=== PATIENT | female | born 1990 ===

== ENCOUNTER 2025-06-22 15:27 | Inpatient (IN) | payer MEDICAID, SELFPAY ==
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
[2025-06-22 15:30] VITALS: BP 127/77; PULSE 103; RESP 18; TEMP 36.4; O2SAT 98; BMI 19.2
[2025-06-22 15:54] VITALS: BP 117/72; PULSE 90; RESP 20; TEMP 36.7; O2SAT 99
[2025-06-22 16:11] LABS: MANUAL DIFF FLAG NO
[2025-06-22 16:12] LABS: Hematocrit 38.0 % (37.0-47.0); Hemoglobin 12.5 g/dl (12.0-16.0); Imm Gran Abs Auto 0.03 X10*3/uL (0.00-0.03); Imm Gran Pct Auto 0.3 % (0.0-0.4); Lymphocytes Absolute Auto 3.2 X10*3/uL (1.2-4.9); Mean Corpuscular HGB Conc 32.9 g/dl (31.0-35.0); Mean Corpuscular Hemoglobin 31.3 pg (27.0-33.0); Mean Corpuscular Volume 95.0 fL (80.0-98.0); NRBC Abs Auto 0.000 X10*3/uL (0.0-0.012); NRBC Pct Auto 0.0 /100WBC (0.0-0.2); Platelet Count 460 X10*3/uL (160-400); Red Blood Count 4.00 X10*6/uL (4.20-5.50); White Blood Count 10.0 X10*3/uL (4.8-10.8)
[2025-06-22 16:16] LABS: Appearance Urine Clear; Glucose Urine UA Negative (Negative); PH 7.5 (5.0-9.0); Specific Gravity - Urine 1.010 (1.005-1.025); UMIC TRIGGER UA YES
[2025-06-22 16:18] LABS: UPreg QC Valid YES
[2025-06-22 16:22] LABS: Cannabinoid Screen Urine POSITIVE (Not Detect)
[2025-06-22 16:25] LABS: Alanine Aminotransferase 16 U/L (0-31); Albumin Level 4.5 g/dL (3.5-5.0); Alkaline Phosphatase 86 U/L (39-117); Anion Gap 12 (12-20); Aspartate Amino Transferase 21 U/L (5-31); Blood Urea Nitrogen 7 mg/dL (9-16); Calcium 9.2 mg/dL (8.4-10.2); Carbon Dioxide 29 mmol/L (22-29); Chloride 108 mmol/L (96-108); Creatinine Clr Calc Pharmacy 131.6; Estimated Glomerular Filt Rate > 60; Potassium 3.7 mmol/L (3.3-5.1); Sodium 145 mmol/L (135-145); Total Protein 7.8 g/dL (6.5-8.0)
--- NOTE | 2025-06-22 18:16 | PC.NURSE ---
Pt arrived to the POD angry, demanding, threw a cup of water on the ground when asked to stop swearing. Pt was cooperative with blood work and obtaining urine. She ate a sandwich and has been asleep.
--- OUTSIDE RECORDS SUMMARY | 2025-06-22 19:31 | XMS_ITS | Clinical Summary ---
Author Organization [facility] ity Address [address] [place] [address] Care Team Providers Care Balloon Dipper Name Role Phone Unavailable Primary Care Provider Unavailabl e Social History Tobacco Use Types Packs/Day Years Used Date Smoking Tobacco: Never Assessed Comments Unknown Sex and Gender Information Value Date Recorded Sex Assigned at Not on file Legal Sex Female 4:48 PM EST Gender Identity Not on file Sexual Orientation Not on file Plan of Treatment Health Maintenance Due Date Last Done Comments DTaP,Tdap,and Td Vaccines (1 - Tdap) 10/03/2007 Hepatitis B Vaccines (1 of 3 - 19+ 3-dose series) 10/03/2007 Cervical Cancer Screening: P ap Smear 2009 HPV Vaccines (1 - 3-dose SCD M series) 10/03/2015 HIV Screening 05/22/2024 Hepatitis C Screening 05/22/2024 Social Influencers of Health Screening 05/22/2024 Depression Screening 07/29/2024 COVID-19 Vaccine ( - 2024-2 6 season) 2025 Influenza Vaccine (#1) 2025 RSV Immunization Adult Patie nts (1 - 1-dose 75+ series) 10/03/2063 HIB Vaccines Aged Out No longer eligi ble based on patient's age to complete this topic Hepatitis A Vaccines Aged Out No long er eligible based on patient's age to complete this topic IPV Vaccines Aged Out No longer eligi ble based on patient's age to complete this topic MMR Vaccines Aged Out No longer eligi ble based on patient's age to complete this topic Meningococcal ACWY Vaccine Aged Out N o longer eligible based on patient's age to complete this topic Meningococcal B Vaccine Aged Out No l onger eligible based on patient's age to complete this topic Pneumococcal Vaccine: Pediat rics (0 to 5 Years) and At-Risk Patients (6 to 49 Years) Aged Out No longer eligible b ased on patient's age to complete this topic RSV Immunization Patients Un roseanne 20 months Aged Out No longer eligible b ased on patient's age to complete this topic Varicella Vaccines Aged Out No longer eligible based on patient's age to complete this topic
--- OUTSIDE RECORDS SUMMARY | 2025-06-22 19:31 | XMS_ITS | Clinical Summary ---
Author Organization [facility] Address [address] [phone] Phone Care Team Providers Care Area Forester Name Role Phone Pcp, Unknown Primary Care Provider Unavailabl e Allergies Active Allergy Reactions Criticality Noted Date Comments Aspirin 09/26/2023 Medications No known medications Active Problems No known active problems Social History Tobacco Use Types Packs/Day Years Used Date Smoking Tobacco: Never Assessed Education Answer Date Recorded Are you interested in more education? Not on eli e 09/26/2023 Are you concerned about learning? Not on file 09/26/2023 No 09/26/2023 No 09/26/2023 Digital Access Answer Date Recorded No 09/26/2023 No 09/26/2023 Reliable internet access at home? Not on file 09/26/2023 Device with a working camera? Not on file Comments Unknown Sex and Gender Information Value Date Recorded Sex Assigned at Female 09/26/2023 3:19 AM EST Legal Sex Female 3:09 AM EST Gender Identity Female 09/26/2023 3:19 AM EST Sexual Orientation Straight 09/26/2023 3: 19 AM EST Last Filed Vital Signs Vital Sign Reading Time Taken Comments Blood Pressure 141/98 09/26/2023 3:17 AM EST Pulse 116 09/26/2023 3:17 AM EST Temperature 37.1 C (98.8 F) 09/26/2023 3:17 AM EST Respiratory Rate 18 09/26/2023 3:17 AM EST Oxygen Saturation 97% 09/26/2023 3:18 AM EST Inhaled Oxygen Concentration - - Weight - - Height - - Body Mass Index - - Plan of Treatment Health Maintenance Due Date Last Done Comments Adult Td,Tdap Booster 1988 DEPRESSION SCREENING 2000 SMOKING Hx and SMOKELESS TOB ACCO SCREENING 2001 HEPATITIS C SCREENING 2006 HIV ONE-TIME SCREENING (18-6 5 YEARS) 2006 PAP SMEAR 2009 INFLUENZA VACCINE (#1) 2025 COVID-19 VACCINE (2024-2 6 season) 2025 HEPATITIS A VACCINES Aged Out No long er eligible based on patient's age to complete this topic HIB VACCINES Aged Out No longer eligi ble based on patient's age to complete this topic MENINGOCOCCAL VACCINES (ACWY) Aged Out No longer eligible based on patient's age to complete this topic MENINGOCOCCAL VACCINES (B) Aged Out N o longer eligible based on patient's age to complete this topic PNEUMOCOCCAL VACCINES (0-49 years) Aged Out No longer eligible based on patient's age to complete this topic Medical Devices Not on file Care Teams Area Forester Relationship Specialty Start Date End Date Pcp, Unknown PCP - General 09/26/23 Additional Source Comments The information contained in this document represents components of the legal health record. It is not the complete legal health record.[facility]
[2025-06-22 21:04] VITALS: BP 125/90; PULSE 88; RESP 18; TEMP 36.6; O2SAT 100
--- NOTE | 2025-06-22 23:12 | PC.NURSE ---
Assumed care at 1845. Patient presents as calm and cooperative with care. Tearful at times while utilizing POD phone. 20:50 CIWA score of 4. Patient c/o moderate WALSH, MD Boyle made aware. x1 PRN order for Tylenol obtained/administered, pending effectiveness. Patient requested additional medication for sleep, reports she takes 100mg of Trazodone every night. x1 PRN order for 50mg Trazodone obtained/administered, pending effectiveness. Med req completed by t/w. Endorses passive +SI, no plan/intent and states I just want my life back. It all fell apart. Denies HI/AVH. Agreeable to alert staff if feeling unsafe. Currently on menstrual cycle, provided sanitary pads. Requesting ice water frequently. 15 minute safety checks ongoing. Continue plan for CARE Team evaluation in AM.
--- NOTE | 2025-06-23 | ECG_ITS ---
Test Reason : qrs Blood Pressure : */* mmHG Vent. Rate : 68 BPM Atrial Rate : 68 BPM P-R Int : 128 ms QRS Dur : 88 ms QT Int : 428 ms P-R-T Axes : 45 65 45 degrees QTcB Int : 455 ms Normal sinus rhythm Normal ECG No previous ECGs available Referred By: Becca Le Electronically Signed By: Zach Cheng
--- NOTE | 2025-06-23 07:24 | MHC.CARE ---
Pt was assessed by DESIREE yesterday and made an inpatient psychiatric bedsearch. She requested a [facility] admission, did an intake, was accepted, and [facility] told Nancy to send her to a hospital for medical clearance, hence her arrival here.
--- NOTE | 2025-06-23 07:39 | PC.NURSE ---
Assumed care of patient at 0645, patient appears to be in no apparent distress, sleeping, respirations are even and unlabored. Continue plan of care for IPLOC
[2025-06-23 08:03] VITALS: BP 145/85; PULSE 77; RESP 14; TEMP 36.2; O2SAT 100
[2025-06-23 10:48] VITALS: BP 164/85; PULSE 75; RESP 16; TEMP 36.3; O2SAT 95
--- NOTE | 2025-06-23 11:49 | PC.NURSE ---
Addendum entered by Zoya Morse RN 06/23/25 11:49: Pt also declined nicotine replacement therapy at this time, stated I just want to quit cold turkey. RN encouraged pt to reach out if pt was interested in NRT, pt verbalized understanding. Original Note: Pt declined flu vaccine at this time
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
--- NOTE | 2025-06-23 13:31 | PC.NURSE ---
Spoke with pharmacist at [facility] on [facility] who stated Vivitrol injection was sent out on 06/17/25, unable to confirm date that pt received injection
[2025-06-23 13:45] VITALS: BMI 20.5
[2025-06-23 15:31] VITALS: BP 129/90; PULSE 78; RESP 16; TEMP 36.3; O2SAT 95
[2025-06-23 20:00] VITALS: BP 135/85; PULSE 64; RESP 14; TEMP 36.9; O2SAT 98
--- NOTE | 2025-06-23 21:02 | HO.PSYADMNOT ---
HPI Date of Service: 06/23/25 Chief Complaint: SI Sources of Information: patient interviewed, chart reviewed and crisis/core team assessment reviewed HPI Subjective Notes: Alejandro Warning and Conditional Voluntary Healthcare Proxy: No Guardianship: No Medical Problems Affecting Mental Status: No Narrative: Per [facility] carley and [facility] ED provider report: patient is a 34 y.o Ethiopian speaking female with hx of Polysubstance use d/o and depression who who presents to the ER intoxicated, under the influence of alcohol reporting suicidal ideation. She is tearful. She reports her parents brought her here today after she went today stay with similar complaints and they would not help her. She states has not been taking them as prescribed. She states she is homeless, currently staying with her parents. She reports a significant amount of regret and just want my life back. She states she binge drinks several times per week, few nips to up to 10 nips per day. She also uses intranasal cocaine on Fridays. Denies any other substance use. Denies hallucinations but reports night terrors that seem very vivid and real. She reports lack of sleep and poor appetite. She states last week she was on the other side of a fence on a bridge and ready to jump off when ?something clicked in my head to not jump. ? she denies any other suicide attempts or self-harm in the past. She reports a recent admission to [facility] [facility] which helped her a couple of months ago. She would like to go back there for mental health help. Legal issues: denies On M3: patient reports recent for the admission is I started drinking. I want to get help and get back on track and get her life back. Report she lost everything follow the divorce 10 months ago and since then she drinks to numb herself and not have to think about anything. Substance useAlcohol use: 4-10 nips daily. Last drink was just prior to be admitted here in the ED. Hx of section 35- asked to be sectioned by family from November. Relapsed 3 months after treatment. Report on Vivitrol monthly injection which was very helpful. Would like to get it again. Potential appoint in June. Longest sobriety was from Sep 04- November. ROSITA: a couple times a week. Last use was a week ago- sniffed it. . Hx of using mushroom. Currently on CIWA protocol with Ativan PRN and was offered Ativan after brought up to the unit from ED. Report poor sleep like shit but good appetite and gain some weight lately. Denies SI/SIB/HI/AVH. Denies SIB hx, denies SI hx. Denies suicide attempt hx. Mood is anxious and depressed rated them a 9/10. also report feeling irritated. No hx of hallucination. Seen by [employer] from [facility] to manage her psychiatric medication after discharged from [facility]. Patient is A+Ox4, wearing hospital attire with symptoms of alcohol W/D. Anxious, sad, depressed but pleasant and cooperative. No irritability. Fair eye contact. Thought process is organizned and linear. Thought content is with treatment and treatment focus, future oriented. No SI/SIB/HI/AVH. Poor judgment but fair insight Past Psychiatric History: This is her second [facility] admission. First was two months ago at [facility] for 11 days with same presentation. No PHP/Respite or Detox. Report she was at [facility] in the past but just was in and out quick couple min and left. No SI or suicide attempt hx Medical Evaluation Reviewed: Yes Unremarkable PMFSH Narrative: Denies Narrative: Denies Family History: Denies family hx of mental health but reports alcohol use issues run in both of her mother and father's side everyone except my mom . Social History: Recently 10 months ago. Follow the divorce, she lost everything: Lost a , cars, business, house, dogs and currently homeless. Been staying with boyfriend in [place]. Able to return. Have no children with 9th grade of education level Substance History: Alcohol use: 4-10 nips daily. Last drink was just prior to be admitted here in the ED. Hx of section 35- asked to be sectioned by family from November. Relapsed 3 months after treatment. Report on Vivitrol monthly injection which was very helpful. Would like to get it again. Potential appoint in June. Longest sobriety was from Sep 04- November. ROSITA: a couple times a week. Last use was a week ago- sniffed it. . Hx of using mushroom. Smoke 1/2 cig/day. Trauma History: Denies trauma currently but report hx experience nightmare/flashback up to couple years ago from childhood memory of a best friend who fell on ice and at 5 y.o. Diagnostics Vital Signs (24Hr): Vital Signs - 24 hr 06/22/25 21:04 06/23/25 08:03 06/23/25 10:48 Temperature 97.8 F 97.2 F 97.3 F Pulse Rate 88 77 75 Respiratory Rate 18 14 16 Blood Pressure 125/90 H 145/85 H 164/85 H Pulse Oximetry 100 100 95 Oxygen Delivery Method Room Air Room Air Room Air 06/23/25 15:31 Temperature 97.3 F Pulse Rate 78 Respiratory Rate 16 Blood Pressure 129/90 H Pulse Oximetry 95 Oxygen Delivery Method Room Air BMI result Body Mass Index 20.5 Labs 06/22/25 16:00 06/22/25 16:00 Labs: Laboratory Results - last 48 hr 06/22/25 06/22/25 16:00 16:02 WBC 10.0 RBC 4.00 L Hgb 12.5 Hct 38.0 MCV 95.0 MCH 31.3 MCHC 32.9 RDW 13.4 Plt Count 460 H MPV 8.9 L Immature Gran % (Auto) 0.3 Neut % (Auto) 58.7 Lymph % (Auto) 32.0 [place] % (Auto) 6.3 Eos % (Auto) 1.5 Baso % (Auto) 1.2 Lymph # (Auto) 3.2 [place] # (Auto) 0.6 Eos # (Auto) 0.2 Baso # (Auto) 0.1 Abs Immat Gran (auto) 0.03 Absolute Neuts (auto) 5.8 Absolute Nucleated RBC 0.000 Nucleated RBC % (auto) 0.0 Sodium 145 Potassium 3.7 Chloride 108 Carbon Dioxide 29 Anion Gap 12 BUN 7 L Creatinine 0.55 Estim Creat Clear Calc 131.6 Estimated GFR > 60 Random Glucose 98 Calcium 9.2 Total Bilirubin 0.1 AST 21 ALT 16 Alkaline Phosphatase 86 Total Protein 7.8 Albumin 4.5 Urine Color Yellow Urine Appearance Clear Urine pH 7.5 Ur Specific [place] 1.010 Urine Protein Negative Urine Glucose (UA) Negative Urine Ketones Negative Urine Blood Negative Urine Nitrite Negative Ur Leukocyte Esterase Small (1+) H Urine RBC 0-2 Urine WBC 6-10 H Ur Squamous Epith Cells 0-2 Urine Bacteria Trace Hyaline Casts 0-2 Urine Test NEGATIVE Urine Opiates Screen Not Detected Ur Buprenorphine Scrn Not Detected Ur Oxycodone Screen Not Detected Urine Methadone Screen Not Detected Urine Fentanyl Screen Not Detected Ur Barbiturates Screen Not Detected Ur Phencyclidine Scrn Not Detected Ur Amphetamines Screen Not Detected U Benzodiazepines Scrn Not Detected Urine Cocaine Screen POSITIVE H U Marijuana (THC) Screen POSITIVE H Ethyl Alcohol 392 H* Meds/Allergies Meds Home Medications ?Medication ?Instructions ?Recorded ?Confirmed ?Type aripiprazole 5 mg tablet 5 mg PO DAILY 06/22/25 06/22/25 History cyanocobalamin (vitamin B-12) 1,000 mcg PO QAM 06/22/25 06/22/25 History 1,000 mcg tablet (Vitamin B-12) hydroxyzine HCl 50 mg tablet 50 mg PO QID PRN anxiety 06/22/25 06/22/25 History naltrexone 50 mg tablet 50 mg PO DAILY 06/22/25 06/22/25 History thiamine HCl (vitamin B1) 100 mg 100 mg PO DAILY 06/22/25 06/22/25 History tablet trazodone 50 mg tablet 50 - 100 mg PO BEDTIME PRN insomnia 06/22/25 06/22/25 History multivitamin with folic acid 400 1 tab PO DAILY 06/23/25 06/23/25 History mcg tablet naltrexone microspheres 380 mg 380 mg IM Q4W 06/23/25 06/23/25 History intramuscular suspension,extended release (Vivitrol) prazosin 2 mg capsule 2 mg PO BEDTIME 06/23/25 06/23/25 History sertraline 100 mg tablet 100 mg PO BEDTIME 06/23/25 06/23/25 History Allergies Allergies Allergy/AdvReac Type Severity Reaction Status Date / Time aspirin AdvReac Unknown Verified 06/22/25 15:34 Mental Status Exam Mental Status Exam Narrative: Report poor sleep like shit but good appetite and gain some weight lately. Denies SI/SIB/HI/AVH. Denies SIB hx, denies SI hx. Denies suicide attempt hx. Mood is anxious and depressed rated them a 9/10. also report feeling irritated. No hx of hallucination. Seen by [employer] from [facility] to manage her psychiatric medication after discharged from [facility]. Patient is A+Ox4, wearing hospital attire with symptoms of alcohol W/D. Anxious, sad, depressed but pleasant and cooperative. No irritability. Fair eye contact. Thought process is organizned and linear. Thought content is with treatment and treatment focus, future oriented. No SI/SIB/HI/AVH. Poor judgment but fair insight. Assessment & Plan Assessment & Plan (1) Current severe episode of major depressive disorder: Status: Acute Code(s): F32.2 - Major depressive disorder, single episode, severe without psychotic features (2) Alcohol intoxication: Status: Acute Qualifiers: Complication of substance-induced condition: uncomplicated Qualified Code(s): F10.920 - Alcohol use, unspecified with intoxication, uncomplicated Code(s): F10.929 - Alcohol use, unspecified with intoxication, unspecified (3) Cocaine use disorder: Status: Acute Code(s): F14.90 - Cocaine use, unspecified, uncomplicated Plan HPI: patient is a 34 y.o Ethiopian speaking female with hx of Polysubstance use d/o and depression who presents to the ER intoxicated, under the influence of alcohol reporting suicidal ideation. Formulation/clinical reasoning: increased life stressors, recently 10 months ago, homeless, increased in alcohol consumption to numb her feeling, not compliant with meds. increased anixety, depression and issues with sleep. Given above information, patient will benefit in restrictive environment for safety, medication management, monitor for same detox when addressing mental health issues, refer patient to outpatient psychiatric services for aftercare. She is could be a good candidate for substance use treatment program. Hospital course: 06/23/25: Melatonin 6 mg at bedtime for insomnia, with trazodone p.r.n. available. Prazosin 2 mg at bedtime for nightmare(home medication) Sertraline 100 mg at bedtime for depression anxiety(home medication) Abilify from events daily in the morning for severe anxiety (home medication) Clonidine 0.1 t.i.d. p.r.n. for withdrawal symptoms Motrin 600 q.6 hour p.r.n. for headache alcohol withdrawal. Vitamin-B a 1000 mcg daily Multivitamins daily. Zofran 4 mg q.6 hours p.r.n. for nauseous and vomiting. We will hold naltrexone to she done with detoxing. We will revisit On CIWA protocol with Ativan PRNs for alcohol withdrawal. Plan Patient on 15 minute checks for safety. Admitted to . CV. Work with treatment team to do collateral for CSS/CCS if possible for aftercare. Refer to patient to software testing specialist: pending History of Vivitrol long-acting injection: Last received Feb-Mar: From that is really helpful. She just missed appointment/not able to make appointment. Reported that next appointment is in June. Patient educated on: diagnosis, medication risk/benefits, substance abuse and therapeutic strategies Informed Consent: understands and further education needed Reason for continued inpatient stay Substantial Risk for: med/psych decompensation Statement Statement: I have reviewed the history and physical and performed a pertinent examination on my patient. No changes have occurred unless specified. If the History and Physical was not performed prior to admission, the Hospitalist's service will be consulted for completing the admission physical. Time Spent With Patient Time: Total time managing care of this patient today ____ minutes.
[2025-06-23 21:58] VITALS: BP 135/85
[2025-06-24 08:00] VITALS: BP 127/68; PULSE 74; RESP 14; TEMP 36.5; O2SAT 97
[2025-06-24 09:14] LABS: Alanine Aminotransferase 17 U/L (0-31); Albumin Level 4.5 g/dL (3.5-5.0); Alkaline Phosphatase 88 U/L (39-117); Anion Gap 13 (12-20); Aspartate Amino Transferase 19 U/L (5-31); Blood Urea Nitrogen 9 mg/dL (9-16); Calcium 9.5 mg/dL (8.4-10.2); Carbon Dioxide 25 mmol/L (22-29); Chloride 103 mmol/L (96-108); Cholesterol 197 mg/dL (<200); Creatinine Clr Calc Pharmacy 133.0; Estimated Glomerular Filt Rate > 60; HDL Cholesterol 71 mg/dL (>40); Potassium 3.8 mmol/L (3.3-5.1); Sodium 137 mmol/L (135-145); Total Protein 7.8 g/dL (6.5-8.0); Triglycerides 127 mg/dL (<150)
[2025-06-24 09:31] LABS: Free T4 (Free Thyroxine) 0.85 ng/dL (0.71-1.85); Thyroid Stimulating Hormone 0.69 uIU/mL (0.32-4.0)
[2025-06-24 09:36] LABS: Vitamin B12 525 pg/mL (200-900)
[2025-06-24 12:00] VITALS: BP 133/92; PULSE 107; RESP 16; O2SAT 97
[2025-06-24 16:18] VITALS: BP 126/85; PULSE 80; RESP 16; TEMP 36.6; O2SAT 95
[2025-06-24 19:24] VITALS: BP 136/91; PULSE 71; RESP 16; TEMP 36.4; O2SAT 98
[2025-06-24 22:10] VITALS: BP 142/98
--- NOTE | 2025-06-24 23:38 | P.PNPSI_ITS ---
Subjective Subjective Date of Service: 06/24/25 Reason For Visit: SI Subjective Notes: Alejandro Warning and Conditional Voluntary Healthcare Proxy: No Guardianship: No Medical Problems Affecting Mental Status: No Interim History: Medical record and nursing notes reviewed; case discussed during rounds with team/nursing staff, and met with patient for supportive therapy/psychoeducation, as well as medication management. Meet with patient in assigned room, report sleep is better. Fair appetite. Anxious and sad regarding holiday but mom came in for a visit which made her happy. Report alcohol W/D symptoms are better. Denies safety concerns or hallucination. Per nursing, patient slept for 8 hours, compliant with meds, no side effects. Patient has Vivitrol shot appointment on 06/29/25. If not discharged, she would like someone to call clinic to let them know she is here as she already missed two times and do not want them to think she would miss it this time again. Medication Compliance: Yes Side effects from medications: No Attending Groups: Yes Review of Systems Acute medical concerns: No Medical Review of Systems: unchanged Review of Systems Review of Systems Constitutional: Denies fatigue and Denies fever(s) Cardiovascular: Denies chest pain and Denies dyspnea Respiratory: Denies dyspnea Gastrointestinal: Denies abdominal pain Psychiatric: denies suicidal ideation Endocrine: Denies fatigue Yes all other systems are reviewed and are negative Mental Status Exam Mental Status Exam Narrative: Patient is A+Ox4, wearing hospital attire with symptoms of alcohol W/D. Anxious, sad, depressed but pleasant and cooperative. No irritability. Fair eye contact. Thought process is organized and linear. Thought content is with treatment and treatment focus, future oriented. No SI/SIB/HI/AVH. Fair judgment but fair insight. Diagnostics Vital Signs (24Hr): Vital Signs - 24 hr 06/24/25 08:00 06/24/25 12:00 06/24/25 16:18 Temperature 97.7 F 97.9 F Pulse Rate 74 107 H 80 Respiratory Rate 14 16 16 Blood Pressure 127/68 133/92 H 126/85 Pulse Oximetry 97 97 95 Oxygen Delivery Method Room Air Room Air Room Air 06/24/25 22:10 Temperature Pulse Rate Respiratory Rate Blood Pressure 142/98 H Pulse Oximetry Oxygen Delivery Method BMI result Body Mass Index 20.5 Labs 06/22/25 16:00 06/24/25 07:56 Labs: Laboratory Results - last 48 hr 11/27/25 07:56 Sodium 137 Potassium 3.8 Chloride 103 Carbon Dioxide 25 Anion Gap 13 BUN 9 Creatinine 0.58 Estim Creat Clear Calc 133.0 Estimated GFR > 60 Random Glucose 109 Estimat Average Glucose 85 Hemoglobin A1c % 4.6 Calcium 9.5 Total Bilirubin 0.4 AST 19 ALT 17 Alkaline Phosphatase 88 Total Protein 7.8 Albumin 4.5 Triglycerides 127 Cholesterol 197 LDL Cholesterol, Calc 101 H HDL Cholesterol 71 Vitamin B12 525 TSH 0.69 Free T4 0.85 Medications Medications Current Medications Acetaminophen (Acetaminophen 325 Mg Tablet) 650 mg PO Q6H PRN PRN Reason: Headache/Pain, Scale 1-10 Last Admin: 06/23/25 20:38 Dose: 650 mg Al Hydroxide/Mg Hydroxide (Magnesium Hydrox/Alum Hydrox 30 Ml Oral.Susp) 30 ml PO Q6H PRN PRN Reason: Heartburn/Nausea Aripiprazole (Aripiprazole 5 Mg Tablet) 5 mg PO DAILY [facility] Last Admin: 06/24/25 08:56 Dose: 5 mg Clonidine HCl (Clonidine Hcl 0.1 Mg Tablet) 0.1 mg PO TID PRN; Protocol PRN Reason: ROSITA W/D symptoms Cyanocobalamin (Cyanocobalamin (Vitamin B-12) 1,000 Mcg Tablet) 1,000 mcg PO DAILY [facility] Last Admin: 06/24/25 08:56 Dose: 1,000 mcg Hydroxyzine HCl (Hydroxyzine Hcl 50 Mg Tablet) 50 mg PO QID PRN PRN Reason: Anxiety Last Admin: 06/24/25 22:09 Dose: 50 mg Ibuprofen (Ibuprofen 600 Mg Tablet) 600 mg PO Q6H PRN PRN Reason: Headache Lorazepam (Lorazepam 1 Mg Tablet) 1 mg PO Q2H PRN PRN Reason: CIWA 8-11 Last Admin: 06/23/25 10:50 Dose: 1 mg Lorazepam (Lorazepam 1 Mg Tablet) 2 mg PO Q2H PRN PRN Reason: CIWA 12-15 Magnesium Hydroxide (Milk Of Magnesia 30 Ml Oral.Susp) 30 ml PO DAILY PRN PRN Reason: Constipation Melatonin (Melatonin 3 Mg Tablet) 6 mg PO BEDTIME [facility] Last Admin: 06/24/25 22:10 Dose: 6 mg Multivitamins/Vitamin C (Multivitamin Tablet) 1 tab PO DAILY [facility] Last Admin: 06/24/25 08:56 Dose: 1 tab Nicotine (Nicotine 21 Mg Patch.Td24) 21 mg TRANSDERMA DAILY PRN PRN Reason: nicotine craving Nicotine Polacrilex (Nicotine Polacrilex 2 Mg Gum) 2 mg BUCCAL Q2H PRN PRN Reason: Nicotine Cravings Olanzapine (Olanzapine 5 Mg Tablet) 5 mg PO BID PRN PRN Reason: agitation Ondansetron HCl (Ondansetron Odt 4 Mg Tab.Rapdis) 4 mg TRANSLINGU Q6H PRN PRN Reason: Nausea and Vomiting Prazosin HCl (Prazosin Hcl 1 Mg Capsule) 2 mg PO BEDTIME ALEJO; Protocol Last Admin: 06/24/25 22:10 Dose: 2 mg Sertraline HCl (Sertraline Hcl 100 Mg Tablet) 100 mg PO BEDTIME [facility] Last Admin: 06/24/25 22:10 Dose: 100 mg Thiamine HCl (Thiamine Hcl 100 Mg Tablet) 100 mg PO DAILY [facility] Last Admin: 06/24/25 08:55 Dose: 100 mg Trazodone HCl (Trazodone Hcl 50 Mg Tablet) 50 mg PO BEDTIME MRX1 PRN PRN Reason: Insomnia Last Admin: 06/24/25 22:09 Dose: 50 mg Allergies Allergies Allergy/AdvReac Type Severity Reaction Status Date / Time aspirin AdvReac Unknown Verified 06/22/25 15:34 Assessment & Plan Assessment & Plan (1) Current severe episode of major depressive disorder: Status: Acute Code(s): F32.2 - Major depressive disorder, single episode, severe without psychotic features (2) Alcohol intoxication: Qualifiers: Complication of substance-induced condition: uncomplicated Qualified Code(s): F10.920 - Alcohol use, unspecified with intoxication, uncomplicated Status: Acute Code(s): F10.929 - Alcohol use, unspecified with intoxication, unspecified (3) Cocaine use disorder: Status: Acute Code(s): F14.90 - Cocaine use, unspecified, uncomplicated Plan HPI: patient is a 34 y.o Ukrainian speaking female with hx of Polysubstance use d/o and depression who presents to the ER intoxicated, under the influence of alcohol reporting suicidal ideation. Formulation/clinical reasoning: increased life stressors, recently 10 months ago, homeless, increased in alcohol consumption to numb her feeling, not compliant with meds. increased anixety, depression and issues with sleep. Given above information, patient will benefit in restrictive environment for safety, medication management, monitor for same detox when addressing mental health issues, refer patient to outpatient psychiatric services for aftercare. She is could be a good candidate for substance use treatment program. Hospital course: 06/23/25: Melatonin 6 mg at bedtime for insomnia, with trazodone p.r.n. available. Prazosin 2 mg at bedtime for nightmare(home medication) Sertraline 100 mg at bedtime for depression anxiety(home medication) Abilify from events daily in the morning for severe anxiety (home medication) Clonidine 0.1 t.i.d. p.r.n. for withdrawal symptoms Motrin 600 q.6 hour p.r.n. for headache alcohol withdrawal. Vitamin-B a 1000 mcg daily Multivitamins daily. Zofran 4 mg q.6 hours p.r.n. for nauseous and vomiting. We will hold naltrexone to she done with detoxing. We will revisit On [facility] protocol with Ativan PRNs for alcohol withdrawal. 06/24/25: Meet with patient in assigned room, report sleep is better. Fair appetite. Anxious and sad regarding holiday but mom came in for a visit which made her happy. Report alcohol W/D symptoms are better. Denies safety concerns or hallucination. Per nursing, patient slept for 8 hours, compliant with meds, no side effects. Patient has Vivitrol shot appointment on 06/29/25. If not discharged, she would like someone to call clinic to let them know she is here as she already missed two times and do not want them to think she would miss it this time again. Plan Patient on 15 minute checks for safety. Admitted to [facility]. CV. Work with treatment team to do collateral for CSS/CCS if possible for aftercare. Refer to patient to implementation specialist payroll: pending History of Vivitrol long-acting injection: Last received Feb-Mar: From that is really helpful. She just missed appointment/not able to make appointment. Reported that next appointment is in June. Patient educated on: diagnosis, medication risk/benefits, substance abuse and therapeutic strategies Informed Consent: understands and further education needed Reason for continued inpatient stay Substantial Risk for: med/psych decompensation Time Spent With Patient Time: Total time managing care of this patient today ____ minutes.
[2025-06-25 02:50] VITALS: TEMP 36.3
[2025-06-25 08:45] VITALS: BP 127/82; PULSE 85; RESP 20; TEMP 36.3; O2SAT 99
--- NOTE | 2025-06-25 17:42 | HO.PSYCHPN ---
Subjective Subjective Date of Service: 06/25/25 Reason For Visit: SI Subjective Notes: 3 Day Interim History: Chart reviewed. Case discussed with tx team Denies sx of ETOH w/d Denies depression/SI. States that she had gone to [place] to get back on Vivitrol, was told to present to ED for med clearance. She reports that she had to report having SI to the admissions clinician so she could get admitted. Her goal has been to get back on Vivitrol, which previously helped her abstain from ETOH. She wants to get her life back on track. She is anxious about missing her next Vivitrol IM, which is scheduled for next Saturday at [facility] in [place]. Politely advocates for d/c prior to then. Medication Compliance: Yes Side effects from medications: No Mental Status Exam Mental Status Exam Narrative: Appearance: Grooming/hygiene wnl. Good eye contact Attitude:Cooperative Speech: Fluent and wnl in regard to volume, tone, prosody Motor activity: Calm and without any tics, tremors or dyskinesias. Steady gait Mood: Anxious Affect: appropriate, reactive Thought process: goal directed and without evidence of formal thought disorder Thought content: anxious about missing appt for Vivitrol injection. Denies SI. Future oriented Perception: does not appear to respond to internal stimuli Alert/oriented in all spheres Cognition grossly intact Insight: intact Judgment: intact Diagnostics Vital Signs (24Hr): Vital Signs - 24 hr 06/24/25 19:24 06/24/25 22:10 06/25/25 02:50 Temperature 97.5 F 97.3 F Pulse Rate 71 Respiratory Rate 16 Blood Pressure 136/91 H 142/98 H Pulse Oximetry 98 Oxygen Delivery Method Room Air 06/25/25 08:45 Temperature 97.4 F Pulse Rate 85 Respiratory Rate 20 Blood Pressure 127/82 Pulse Oximetry 99 Oxygen Delivery Method Room Air BMI result Body Mass Index 20.5 Labs 06/22/25 16:00 06/24/25 07:56 Labs: Laboratory Results - last 48 hr 06/24/25 07:56 Sodium 137 Potassium 3.8 Chloride 103 Carbon Dioxide 25 Anion Gap 13 BUN 9 Creatinine 0.58 Estim Creat Clear Calc 133.0 Estimated GFR > 60 Random Glucose 109 Estimat Average Glucose 85 Hemoglobin A1c % 4.6 Calcium 9.5 Total Bilirubin 0.4 AST 19 ALT 17 Alkaline Phosphatase 88 Total Protein 7.8 Albumin 4.5 Triglycerides 127 Cholesterol 197 LDL Cholesterol, Calc 101 H HDL Cholesterol 71 Vitamin B12 525 TSH 0.69 Free T4 0.85 Medications Medications Current Medications Acetaminophen (Acetaminophen 325 Mg Tablet) 650 mg PO Q6H PRN PRN Reason: Headache/Pain, Scale 1-10 Last Admin: 06/25/25 02:49 Dose: 650 mg Al Hydroxide/Mg Hydroxide (Magnesium Hydrox/Alum Hydrox 30 Ml Oral.Susp) 30 ml PO Q6H PRN PRN Reason: Heartburn/Nausea Aripiprazole (Aripiprazole 5 Mg Tablet) 5 mg PO DAILY [facility] Last Admin: 06/25/25 08:46 Dose: 5 mg Benzocaine (Throat Lozenge, Medicated Lozenge) 1 lozenge MUCOUS MEM Q2H PRN PRN Reason: Sore Throat Clonidine HCl (Clonidine Hcl 0.1 Mg Tablet) 0.1 mg PO TID PRN; Protocol PRN Reason: ROSITA W/D symptoms Cyanocobalamin (Cyanocobalamin (Vitamin B-12) 1,000 Mcg Tablet) 1,000 mcg PO DAILY [facility] Last Admin: 06/25/25 08:46 Dose: 1,000 mcg Hydroxyzine HCl (Hydroxyzine Hcl 50 Mg Tablet) 50 mg PO QID PRN PRN Reason: Anxiety Last Admin: 06/24/25 22:09 Dose: 50 mg Ibuprofen (Ibuprofen 600 Mg Tablet) 600 mg PO Q6H PRN PRN Reason: Headache Lorazepam (Lorazepam 1 Mg Tablet) 1 mg PO Q2H PRN PRN Reason: CIWA 8-11 Last Admin: 06/23/25 10:50 Dose: 1 mg Magnesium Hydroxide (Milk Of Magnesia 30 Ml Oral.Susp) 30 ml PO DAILY PRN PRN Reason: Constipation Melatonin (Melatonin 3 Mg Tablet) 6 mg PO BEDTIME [facility] Last Admin: 06/24/25 22:10 Dose: 6 mg Multivitamins/Vitamin C (Multivitamin Tablet) 1 tab PO DAILY [facility] Last Admin: 06/25/25 08:46 Dose: 1 tab Nicotine (Nicotine 21 Mg Patch.Td24) 21 mg TRANSDERMA DAILY PRN PRN Reason: nicotine craving Nicotine Polacrilex (Nicotine Polacrilex 2 Mg Gum) 2 mg BUCCAL Q2H PRN PRN Reason: Nicotine Cravings Olanzapine (Olanzapine 5 Mg Tablet) 5 mg PO BID PRN PRN Reason: agitation Ondansetron HCl (Ondansetron Odt 4 Mg Tab.Rapdis) 4 mg TRANSLINGU Q6H PRN PRN Reason: Nausea and Vomiting Prazosin HCl (Prazosin Hcl 1 Mg Capsule) 2 mg PO BEDTIME ALEJO; Protocol Last Admin: 06/24/25 22:10 Dose: 2 mg Sertraline HCl (Sertraline Hcl 100 Mg Tablet) 100 mg PO BEDTIME ALEJO Last Admin: 06/24/25 22:10 Dose: 100 mg Thiamine HCl (Thiamine Hcl 100 Mg Tablet) 100 mg PO DAILY [facility] Last Admin: 06/25/25 08:46 Dose: 100 mg Trazodone HCl (Trazodone Hcl 50 Mg Tablet) 50 mg PO BEDTIME MRX1 PRN PRN Reason: Insomnia Last Admin: 06/25/25 02:49 Dose: 50 mg Allergies Allergies Allergy/AdvReac Type Severity Reaction Status Date / Time aspirin AdvReac Unknown Verified 06/22/25 15:34 Assessment & Plan Assessment & Plan (1) Current severe episode of major depressive disorder: Status: Acute Code(s): F32.2 - Major depressive disorder, single episode, severe without psychotic features (2) Alcohol intoxication: Qualifiers: Complication of substance-induced condition: uncomplicated Qualified Code(s): F10.920 - Alcohol use, unspecified with intoxication, uncomplicated Status: Acute Code(s): F10.929 - Alcohol use, unspecified with intoxication, unspecified (3) Cocaine use disorder: Status: Acute Code(s): F14.90 - Cocaine use, unspecified, uncomplicated Plan HPI: patient is a 34 y.o Algerian speaking female with hx of Polysubstance use d/o and depression who presents to the ER intoxicated, under the influence of alcohol reporting suicidal ideation. Formulation/clinical reasoning: increased life stressors, recently 10 months ago, homeless, increased in alcohol consumption to numb her feeling, not compliant with meds. increased anixety, depression and issues with sleep. Given above information, patient will benefit in restrictive environment for safety, medication management, monitor for same detox when addressing mental health issues, refer patient to outpatient psychiatric services for aftercare. She is could be a good candidate for substance use treatment program. Hospital course: 06/23/25: Melatonin 6 mg at bedtime for insomnia, with trazodone p.r.n. available. Prazosin 2 mg at bedtime for nightmare(home medication) Sertraline 100 mg at bedtime for depression anxiety(home medication) Abilify from events daily in the morning for severe anxiety (home medication) Clonidine 0.1 t.i.d. p.r.n. for withdrawal symptoms Motrin 600 q.6 hour p.r.n. for headache alcohol withdrawal. Vitamin-B a 1000 mcg daily Multivitamins daily. Zofran 4 mg q.6 hours p.r.n. for nauseous and vomiting. We will hold naltrexone to she done with detoxing. We will revisit On CIWA protocol with Ativan PRNs for alcohol withdrawal. 06/24/25: Meet with patient in assigned room, report sleep is better. Fair appetite. Anxious and sad regarding holiday but mom came in for a visit which made her happy. Report alcohol W/D symptoms are better. Denies safety concerns or hallucination. Per nursing, patient slept for 8 hours, compliant with meds, no side effects. Patient has Vivitrol shot appointment on 06/29/25. If not discharged, she would like someone to call clinic to let them know she is here as she already missed two times and do not want them to think she would miss it this time again. Plan Patient on 15 minute checks for safety. Admitted to . CV. Work with treatment team to do collateral for CSS/CCS if possible for aftercare. Refer to patient to office support specialist: pending History of Vivitrol long-acting injection: Last received Feb-Mar: From that is really helpful. She just missed appointment/not able to make appointment. Reported that next appointment is in June. 06/25: Pt denies SI. Denies sx of ETOH w/d. CIWA d/c'd this am. She is future oriented and motivated to work on her sobriety. She has an appt to receive Vivitrol on Saturday am at [facility]. She has good insight/judgment. Patient educated on: medication risk/benefits and substance abuse Informed Consent: understands Reason for continued inpatient stay Substantial Risk for: med/psych decompensation Time Spent With Patient Time: Total time managing care of this patient today ____ minutes.
--- NOTE | 2025-06-25 18:01 | MHC.RECOVRN ---
Consult placed to Addiction Medicine for pt wanting to receive Vivitrol at discharge.? Tw met with pt on M3. Pt was pleasant, calm and engaged during the interview and is goal oriented.? Pt states she has an appt 06/29/25? at [facility] to receive Vivitrol injection. She states this will be her 2nd injection. Pt reported the doctor informed her they will discharge her Saturday06/28/25 so she can make her appt.? Pt also states she has a therapist and psychiatrist at [facility] and will be returning to to pursue her sobriety.? Pt was provided contact information for ACS team for any questions or concerns which she denies at this time.
--- NOTE | 2025-06-25 18:32 | MHC.RECOVRN ---
[facility] referral faxed to: [facility] ([facility]) [facility]
[2025-06-25 20:30] VITALS: BP 124/92; PULSE 83; RESP 15; TEMP 36.6; O2SAT 99
[2025-06-26 07:20] VITALS: BP 98/64; PULSE 75; RESP 16; TEMP 36.5; O2SAT 98
[2025-06-26 08:00] VITALS: BP 98/64; PULSE 75; RESP 16; TEMP 36.5; O2SAT 98
[2025-06-26] MEDS: Throat Lozenge, Medicated LOZENGE 1 LOZENGE MUCOUS MEM ×3 (08:52→21:29)
[2025-06-26 21:27] VITALS: BP 105/76; PULSE 78; RESP 15; TEMP 36.1; O2SAT 99
--- NOTE | 2025-06-26 23:48 | HO.PSYCHPN ---
Subjective Subjective Date of Service: 06/26/25 Reason For Visit: SI Subjective Notes: Conditional Voluntary Healthcare Proxy: No Guardianship: No Medical Problems Affecting Mental Status: No Interim History: Medical record and nursing notes reviewed; case discussed during rounds with team/nursing staff, and met with patient for supportive therapy/psychoeducation, as well as medication management. Patient denies any alcohol withdrawal symptoms. Reports continued to improve in sleep and appetite. Denies anxiety and depression, attended groups, easily engaged, had good visit with family reports mom and dad very supportive. Patient had questions regarding if possible to be discharged on Saturday or earliest Saturday so that she can make to the appointment for Vivitrol. Patient is aware that he need to talk to the primary team on Saturday. Per nursing, patient slept well, social and appropriate,, compliant with medications, denies side effects, continue with current treatment plan. Medication Compliance: Yes Side effects from medications: No Attending Groups: Yes Review of Systems Acute medical concerns: No Medical Review of Systems: unchanged Review of Systems Review of Systems Constitutional: Denies fatigue and Denies fever(s) Cardiovascular: Denies chest pain and Denies dyspnea Respiratory: Denies dyspnea Gastrointestinal: Denies abdominal pain Psychiatric: denies suicidal ideation Endocrine: Denies fatigue Yes all other systems are reviewed and are negative Mental Status Exam Mental Status Exam Narrative: Appearance: Grooming/hygiene wnl. Good eye contact Attitude:pleasant and Cooperative Speech: Fluent and wnl in regard to volume, tone, prosody Motor activity: Calm and without any tics, tremors or dyskinesias. Steady gait Mood: Anxious Affect: appropriate, reactive Thought process: Organized and linear Thought content: treatment focus but worry about Vivitrol. Future oriented. Denies SI/SIB/HI. Perception: does not appear to respond to internal stimuli. Denies AVH Alert/oriented in all spheres Cognition grossly intact Insight: intact Judgment: intact Diagnostics Vital Signs (24Hr): Vital Signs - 24 hr 06/26/25 07:20 06/26/25 08:00 06/26/25 21:27 Temperature 97.7 F 97.7 F 97.0 F Pulse Rate 75 75 78 Respiratory Rate 16 16 15 Blood Pressure 98/64 98/64 105/76 Pulse Oximetry 98 98 99 Oxygen Delivery Method Room Air Room Air Room Air BMI result Body Mass Index 20.5 Labs 06/22/25 16:00 06/24/25 07:56 Medications Medications Current Medications Acetaminophen (Acetaminophen 325 Mg Tablet) 650 mg PO Q6H PRN PRN Reason: Headache/Pain, Scale 1-10 Last Admin: 06/25/25 02:49 Dose: 650 mg Al Hydroxide/Mg Hydroxide (Magnesium Hydrox/Alum Hydrox 30 Ml Oral.Susp) 30 ml PO Q6H PRN PRN Reason: Heartburn/Nausea Aripiprazole (Aripiprazole 5 Mg Tablet) 5 mg PO DAILY [facility] Last Admin: 06/26/25 08:51 Dose: 5 mg Benzocaine (Throat Lozenge, Medicated Lozenge) 1 lozenge MUCOUS MEM Q2H PRN PRN Reason: Sore Throat Last Admin: 06/26/25 21:29 Dose: 1 lozenge Clonidine HCl (Clonidine Hcl 0.1 Mg Tablet) 0.1 mg PO TID PRN; Protocol PRN Reason: ROSITA W/D symptoms Cyanocobalamin (Cyanocobalamin (Vitamin B-12) 1,000 Mcg Tablet) 1,000 mcg PO DAILY [facility] Last Admin: 06/26/25 08:52 Dose: 1,000 mcg Hydroxyzine HCl (Hydroxyzine Hcl 50 Mg Tablet) 50 mg PO QID PRN PRN Reason: Anxiety Last Admin: 06/26/25 21:30 Dose: 50 mg Ibuprofen (Ibuprofen 600 Mg Tablet) 600 mg PO Q6H PRN PRN Reason: Headache Lorazepam (Lorazepam 1 Mg Tablet) 1 mg PO Q2H PRN PRN Reason: CIWA 8-11 Last Admin: 06/23/25 10:50 Dose: 1 mg Magnesium Hydroxide (Milk Of Magnesia 30 Ml Oral.Susp) 30 ml PO DAILY PRN PRN Reason: Constipation Melatonin (Melatonin 3 Mg Tablet) 6 mg PO BEDTIME [facility] Last Admin: 06/26/25 21:29 Dose: 6 mg Multivitamins/Vitamin C (Multivitamin Tablet) 1 tab PO DAILY [facility] Last Admin: 06/26/25 08:52 Dose: 1 tab Nicotine (Nicotine 21 Mg Patch.Td24) 21 mg TRANSDERMA DAILY PRN PRN Reason: nicotine craving Nicotine Polacrilex (Nicotine Polacrilex 2 Mg Gum) 2 mg BUCCAL Q2H PRN PRN Reason: Nicotine Cravings Olanzapine (Olanzapine 5 Mg Tablet) 5 mg PO BID PRN PRN Reason: agitation Ondansetron HCl (Ondansetron Odt 4 Mg Tab.Rapdis) 4 mg TRANSLINGU Q6H PRN PRN Reason: Nausea and Vomiting Prazosin HCl (Prazosin Hcl 1 Mg Capsule) 2 mg PO BEDTIME [facility]LEJO; Protocol Last Admin: 06/26/25 21:29 Dose: 2 mg Sertraline HCl (Sertraline Hcl 100 Mg Tablet) 100 mg PO BEDTIME [facility] Last Admin: 06/26/25 21:30 Dose: 100 mg Thiamine HCl (Thiamine Hcl 100 Mg Tablet) 100 mg PO DAILY [facility] Last Admin: 06/26/25 08:52 Dose: 100 mg Trazodone HCl (Trazodone Hcl 50 Mg Tablet) 50 mg PO BEDTIME MRX1 PRN PRN Reason: Insomnia Last Admin: 06/26/25 21:30 Dose: 50 mg Allergies Allergies Allergy/AdvReac Type Severity Reaction Status Date / Time aspirin AdvReac Unknown Verified 06/22/25 15:34 Assessment & Plan Assessment & Plan (1) Current severe episode of major depressive disorder: Status: Acute Code(s): F32.2 - Major depressive disorder, single episode, severe without psychotic features (2) Alcohol intoxication: Qualifiers: Complication of substance-induced condition: uncomplicated Qualified Code(s): F10.920 - Alcohol use, unspecified with intoxication, uncomplicated Status: Acute Code(s): F10.929 - Alcohol use, unspecified with intoxication, unspecified (3) Cocaine use disorder: Status: Acute Code(s): F14.90 - Cocaine use, unspecified, uncomplicated Plan HPI: patient is a 34 y.o Australian speaking female with hx of Polysubstance use d/o and depression who presents to the ER intoxicated, under the influence of alcohol reporting suicidal ideation. Formulation/clinical reasoning: increased life stressors, recently 10 months ago, homeless, increased in alcohol consumption to numb her feeling, not compliant with meds. increased anixety, depression and issues with sleep. Given above information, patient will benefit in restrictive environment for safety, medication management, monitor for same detox when addressing mental health issues, refer patient to outpatient psychiatric services for aftercare. She is could be a good candidate for substance use treatment program. Hospital course: 06/23/25: Melatonin 6 mg at bedtime for insomnia, with trazodone p.r.n. available. Prazosin 2 mg at bedtime for nightmare(home medication) Sertraline 100 mg at bedtime for depression anxiety(home medication) Abilify from events daily in the morning for severe anxiety (home medication) Clonidine 0.1 t.i.d. p.r.n. for withdrawal symptoms Motrin 600 q.6 hour p.r.n. for headache alcohol withdrawal. Vitamin-B a 1000 mcg daily Multivitamins daily. Zofran 4 mg q.6 hours p.r.n. for nauseous and vomiting. We will hold naltrexone to she done with detoxing. We will revisit On [facility] protocol with Ativan PRNs for alcohol withdrawal. 06/24/25: Meet with patient in assigned room, report sleep is better. Fair appetite. Anxious and sad regarding holiday but mom came in for a visit which made her happy. Report alcohol W/D symptoms are better. Denies safety concerns or hallucination. Per nursing, patient slept for 8 hours, compliant with meds, no side effects. Patient has Vivitrol shot appointment on 06/29/25. If not discharged, she would like someone to call clinic to let them know she is here as she already missed two times and do not want them to think she would miss it this time again. 06/25: Pt denies SI. Denies sx of ETOH w/d. CIWA d/c'd this am. She is future oriented and motivated to work on her sobriety. She has an appt to receive Vivitrol on Saturday am at [facility]. She has good insight/judgment. 06/26/25: Patient denies any alcohol withdrawal symptoms. Reports continued to improve in sleep and appetite. Denies anxiety and depression, attended groups, easily engaged, had good visit with family reports mom and dad very supportive. Patient had questions regarding if possible to be discharged on Saturday or earliest Saturday so that she can make to the appointment for Vivitrol. Patient is aware that he need to talk to the primary team on Saturday. Per nursing, patient slept well, social and appropriate,, compliant with medications, denies side effects, continue with current treatment plan. Plan Patient on 15 minute checks for safety. Admitted to M3. CV. Work with treatment team to do collateral for CSS/CCS if possible for aftercare. Refer to patient to residential treatment specialist: pending History of Vivitrol long-acting injection: Last received Feb-Mar: From that is really helpful. She just missed appointment/not able to make appointment. Reported that next appointment is in June. Patient educated on: diagnosis, medication risk/benefits, substance abuse and therapeutic strategies Informed Consent: understands and further education needed Reason for continued inpatient stay Substantial Risk for: med/psych decompensation Time Spent With Patient Time: Total time managing care of this patient today ____ minutes.
[2025-06-27] MEDS: Throat Lozenge, Medicated LOZENGE 1 LOZENGE MUCOUS MEM (06:39)
[2025-06-27 07:39] VITALS: BP 106/70; PULSE 83; RESP 20; TEMP 36.2; O2SAT 98
[2025-06-27 19:25] VITALS: BP 111/81; PULSE 86; RESP 16; TEMP 36.3; O2SAT 98
[2025-06-27 21:04] VITALS: BP 121/92; PULSE 82
--- NOTE | 2025-06-27 23:08 | P.PNPSI_ITS ---
Subjective Subjective Date of Service: 06/27/25 Reason For Visit: SI Subjective Notes: Conditional Voluntary Healthcare Proxy: No Guardianship: No Medical Problems Affecting Mental Status: No Interim History: Medical record and nursing notes reviewed; case discussed during rounds with team/nursing staff, and met with patient for supportive therapy/psychoeducation, as well as medication management. Not much change since yesterday. Continued to improve in mood. Denies anxiety and depression but worry about if she able to be discharged on Saturday to make to the appointment for Vivitrol at [facility]. Denies safety concerns, denies hallucinations. Patient using the headphone for music georges being skill patient states I did not know that we have the helpful with music even though been here for awhile. 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 Appear that only need the melatonin sent home with patient. Reports some limb note swollen on the left side of the ear which is comes and go and that she experienced similar symptoms before, the swollen was gone eventually in the past and has sore throat. Denies other flu like symptoms. Medication Compliance: Yes Side effects from medications: No Attending Groups: Yes Review of Systems Acute medical concerns: No Medical Review of Systems: unchanged Review of Systems Review of Systems Constitutional: Denies fatigue and Denies fever(s) Cardiovascular: Denies chest pain and Denies dyspnea Respiratory: Denies dyspnea Gastrointestinal: Denies abdominal pain Psychiatric: denies suicidal ideation Endocrine: Denies fatigue Yes all other systems are reviewed and are negative Mental Status Exam Mental Status Exam Narrative: Appearance: Grooming/hygiene wnl. Good eye contact Attitude:pleasant and Cooperative Speech: Fluent and wnl in regard to volume, tone, prosody Motor activity: Calm and without any tics, tremors or dyskinesias. Steady gait Mood: Anxious Affect: appropriate, reactive Thought process: Organized and linear Thought content: treatment focus but worry about Vivitrol. Future oriented. Denies SI/SIB/HI. Perception: does not appear to respond to internal stimuli. Denies AVH Alert/oriented in all spheres Cognition grossly intact Insight: intact Judgment: intact Diagnostics Vital Signs (24Hr): Vital Signs - 24 hr 06/27/25 07:39 06/27/25 19:25 06/27/25 21:04 Temperature 97.2 F 97.3 F Pulse Rate 83 86 82 Respiratory Rate 20 16 Blood Pressure 106/70 111/81 121/92 H Pulse Oximetry 98 98 Oxygen Delivery Method Room Air Room Air BMI result Body Mass Index 20.5 Labs 06/22/25 16:00 06/24/25 07:56 Medications Medications Current Medications Acetaminophen (Acetaminophen 325 Mg Tablet) 650 mg PO Q6H PRN PRN Reason: Headache/Pain, Scale 1-10 Last Admin: 06/27/25 06:37 Dose: 650 mg Al Hydroxide/Mg Hydroxide (Magnesium Hydrox/Alum Hydrox 30 Ml Oral.Susp) 30 ml PO Q6H PRN PRN Reason: Heartburn/Nausea Aripiprazole (Aripiprazole 5 Mg Tablet) 5 mg PO DAILY [facility] Last Admin: 06/27/25 09:21 Dose: 5 mg Benzocaine (Throat Lozenge, Medicated Lozenge) 1 lozenge MUCOUS MEM Q2H PRN PRN Reason: Sore Throat Last Admin: 06/27/25 06:39 Dose: 1 lozenge Clonidine HCl (Clonidine Hcl 0.1 Mg Tablet) 0.1 mg PO TID PRN; Protocol PRN Reason: ROSITA W/D symptoms Cyanocobalamin (Cyanocobalamin (Vitamin B-12) 1,000 Mcg Tablet) 1,000 mcg PO DAILY [facility] Last Admin: 06/27/25 09:21 Dose: 1,000 mcg Hydroxyzine HCl (Hydroxyzine Hcl 50 Mg Tablet) 50 mg PO QID PRN PRN Reason: Anxiety Last Admin: 06/27/25 21:08 Dose: 50 mg Ibuprofen (Ibuprofen 600 Mg Tablet) 600 mg PO Q6H PRN PRN Reason: Headache Magnesium Hydroxide (Milk Of Magnesia 30 Ml Oral.Susp) 30 ml PO DAILY PRN PRN Reason: Constipation Melatonin (Melatonin 3 Mg Tablet) 6 mg PO BEDTIME [facility] Last Admin: 06/27/25 21:06 Dose: 6 mg Multivitamins/Vitamin C (Multivitamin Tablet) 1 tab PO DAILY [facility] Last Admin: 06/27/25 09:21 Dose: 1 tab Nicotine (Nicotine 21 Mg Patch.Td24) 21 mg TRANSDERMA DAILY PRN PRN Reason: nicotine craving Nicotine Polacrilex (Nicotine Polacrilex 2 Mg Gum) 2 mg BUCCAL Q2H PRN PRN Reason: Nicotine Cravings Olanzapine (Olanzapine 5 Mg Tablet) 5 mg PO BID PRN PRN Reason: agitation Last Admin: 06/27/25 12:55 Dose: 5 mg Ondansetron HCl (Ondansetron Odt 4 Mg Tab.Rapdis) 4 mg TRANSLINGU Q6H PRN PRN Reason: Nausea and Vomiting Prazosin HCl (Prazosin Hcl 1 Mg Capsule) 2 mg PO BEDTIME ALEJO; Protocol Last Admin: 06/27/25 21:06 Dose: 2 mg Sertraline HCl (Sertraline Hcl 100 Mg Tablet) 100 mg PO BEDTIME ALEJO Last Admin: 06/27/25 21:06 Dose: 100 mg Thiamine HCl (Thiamine Hcl 100 Mg Tablet) 100 mg PO DAILY ALEJO Last Admin: 06/27/25 09:21 Dose: 100 mg Trazodone HCl (Trazodone Hcl 50 Mg Tablet) 50 mg PO BEDTIME MRX1 PRN PRN Reason: Insomnia Last Admin: 06/26/25 21:30 Dose: 50 mg Allergies Allergies Allergy/AdvReac Type Severity Reaction Status Date / Time aspirin AdvReac Unknown Verified 06/22/25 15:34 Assessment & Plan Assessment & Plan (1) Current severe episode of major depressive disorder: Status: Acute Code(s): F32.2 - Major depressive disorder, single episode, severe without psychotic features (2) Alcohol intoxication: Qualifiers: Complication of substance-induced condition: uncomplicated Qualified Code(s): F10.920 - Alcohol use, unspecified with intoxication, uncomplicated Status: Acute Code(s): F10.929 - Alcohol use, unspecified with intoxication, unspecified (3) Cocaine use disorder: Status: Acute Code(s): F14.90 - Cocaine use, unspecified, uncomplicated Plan HPI: patient is a 34 y.o Japanese speaking female with hx of Polysubstance use d/o and depression who presents to the ER intoxicated, under the influence of alcohol reporting suicidal ideation. Formulation/clinical reasoning: increased life stressors, recently 10 months ago, homeless, increased in alcohol consumption to numb her feeling, not compliant with meds. increased anixety, depression and issues with sleep. Given above information, patient will benefit in restrictive environment for safety, medication management, monitor for same detox when addressing mental health issues, refer patient to outpatient psychiatric services for aftercare. She is could be a good candidate for substance use treatment program. Hospital course: 06/23/25: Melatonin 6 mg at bedtime for insomnia, with trazodone p.r.n. available. Prazosin 2 mg at bedtime for nightmare(home medication) Sertraline 100 mg at bedtime for depression anxiety(home medication) Abilify from events daily in the morning for severe anxiety (home medication) Clonidine 0.1 t.i.d. p.r.n. for withdrawal symptoms Motrin 600 q.6 hour p.r.n. for headache alcohol withdrawal. Vitamin-B a 1000 mcg daily Multivitamins daily. Zofran 4 mg q.6 hours p.r.n. for nauseous and vomiting. We will hold naltrexone to she done with detoxing. We will revisit On [facility] protocol with Ativan PRNs for alcohol withdrawal. 06/24/25: Meet with patient in assigned room, report sleep is better. Fair appetite. Anxious and sad regarding holiday but mom came in for a visit which made her happy. Report alcohol W/D symptoms are better. Denies safety concerns or hallucination. Per nursing, patient slept for 8 hours, compliant with meds, no side effects. Patient has Vivitrol shot appointment on 06/29/25. If not discharged, she would like someone to call clinic to let them know she is here as she already missed two times and do not want them to think she would miss it this time again. 06/25: Pt denies SI. Denies sx of ETOH w/d. CIWA d/c'd this am. She is future oriented and motivated to work on her sobriety. She has an appt to receive Vivitrol on Saturday am at [facility]. She has good insight/judgment. 06/26/25: Patient denies any alcohol withdrawal symptoms. Reports continued to improve in sleep and appetite. Denies anxiety and depression, attended groups, easily engaged, had good visit with family reports mom and dad very supportive. Patient had questions regarding if possible to be discharged on Saturday or earliest Saturday so that she can make to the appointment for Vivitrol. Patient is aware that he need to talk to the primary team on Saturday. Per nursing, patient slept well, social and appropriate,, compliant with medications, denies side effects, continue with current treatment plan. 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 Appear that only need the melatonin sent home with patient. Reports some limb note swollen on the left side of the ear which is comes and go and that she experienced similar symptoms before, the swollen was gone eventually in the past and has sore throat. Denies other flu like symptoms. Plan Patient on 15 minute checks for safety. Admitted to M3. CV. Work with treatment team to do collateral for CSS/CCS if possible for aftercare. Refer to patient to hearing instrument specialist: pending History of Vivitrol long-acting injection: Last received Feb-Mar: From that is really helpful. She just missed appointment/not able to make appointment. Reported that next appointment is on 06/29/25 at around 1000. Patient educated on: diagnosis, medication risk/benefits, substance abuse and therapeutic strategies Informed Consent: understands and further education needed Reason for continued inpatient stay Substantial Risk for: med/psych decompensation Time Spent With Patient Time: Total time managing care of this patient today ____ minutes.
[2025-06-28 08:00] VITALS: BP 122/90; PULSE 88; RESP 18; TEMP 36.1; O2SAT 98
--- NOTE | 2025-06-28 14:25 | P.PNPSI_ITS ---
Subjective Subjective Date of Service: 06/28/25 Reason For Visit: SI Subjective Notes: Conditional Voluntary Interim History: Active on unit. social with peers. attending groups. Patient reports feeling good today; pt stated, I'm no longer feeling anxious or depressed. I feel like the medications are helping . denies SI/HI/VH/AH. Patient is requesting to be discharged tomorrow to be able to attend her [facility] appointment for her Vivitrol injection and her outpatient providers. Plan to discharge tomorrow morning so pt can attend her appointments. Medication Compliance: Yes Side effects from medications: No Attending Groups: Yes Mental Status Exam Mental Status Exam Narrative: Pt is alert and oriented; behavior is cooperative and calm; dressed in casual attire mood is described as good ; eye contact appropriate; Speech is normal rate, volume and not pressured; thought process is organized; Thought content is on tx/discharge; denies SI/HI/VH/AH. Diagnostics Vital Signs (24Hr): Vital Signs - 24 hr 06/27/25 19:25 06/27/25 21:04 06/28/25 08:00 Temperature 97.3 F 96.9 F Pulse Rate 86 82 88 Respiratory Rate 16 18 Blood Pressure 111/81 121/92 H 122/90 H Pulse Oximetry 98 98 Oxygen Delivery Method Room Air Room Air BMI result Body Mass Index 20.5 Labs 06/22/25 16:00 06/24/25 07:56 Medications Medications Current Medications Acetaminophen (Acetaminophen 325 Mg Tablet) 650 mg PO Q6H PRN PRN Reason: Headache/Pain, Scale 1-10 Last Admin: 06/27/25 06:37 Dose: 650 mg Al Hydroxide/Mg Hydroxide (Magnesium Hydrox/Alum Hydrox 30 Ml Oral.Susp) 30 ml PO Q6H PRN PRN Reason: Heartburn/Nausea Aripiprazole (Aripiprazole 5 Mg Tablet) 5 mg PO DAILY [facility]END[facility] TO [facility] Last Admin: 06/28/25 08:34 Dose: 5 mg Benzocaine (Throat Lozenge, Medicated Lozenge) 1 lozenge MUCOUS MEM Q2H PRN PRN Reason: Sore Throat Last Admin: 06/27/25 06:39 Dose: 1 lozenge Cyanocobalamin (Cyanocobalamin (Vitamin B-12) 1,000 Mcg Tablet) 1,000 mcg PO DAILY [facility]END[facility] TO [facility] Last Admin: 06/28/25 08:34 Dose: 1,000 mcg Hydroxyzine HCl (Hydroxyzine Hcl 50 Mg Tablet) 50 mg PO QID PRN PRN Reason: Anxiety Last Admin: 06/27/25 21:08 Dose: 50 mg Magnesium Hydroxide (Milk Of Magnesia 30 Ml Oral.Susp) 30 ml PO DAILY PRN PRN Reason: Constipation Melatonin (Melatonin 3 Mg Tablet) 6 mg PO BEDTIME ALEJO Last Admin: 06/27/25 21:06 Dose: 6 mg Multivitamins/Vitamin C (Multivitamin Tablet) 1 tab PO DAILY ALEJO Last Admin: 06/28/25 08:34 Dose: 1 tab Naloxone HCl (Naloxone Hcl Nasal Take Home 4 Mg [place]) 8 mg NOSTRILALT ONCE ONE Stop: 06/29/25 08:01 Nicotine Polacrilex (Nicotine Polacrilex 2 Mg Gum) 2 mg BUCCAL Q2H PRN PRN Reason: Nicotine Cravings Olanzapine (Olanzapine 5 Mg Tablet) 5 mg PO BID PRN PRN Reason: agitation Last Admin: 06/27/25 12:55 Dose: 5 mg Prazosin HCl (Prazosin Hcl 1 Mg Capsule) 2 mg PO BEDTIME ALEJO; Protocol Last Admin: 06/27/25 21:06 Dose: 2 mg Sertraline HCl (Sertraline Hcl 100 Mg Tablet) 100 mg PO BEDTIME ALEJO Last Admin: 06/27/25 21:06 Dose: 100 mg Thiamine HCl (Thiamine Hcl 100 Mg Tablet) 100 mg PO DAILY ALEJO Last Admin: 06/28/25 08:35 Dose: 100 mg Trazodone HCl (Trazodone Hcl 50 Mg Tablet) 50 mg PO BEDTIME MRX1 PRN PRN Reason: Insomnia Last Admin: 06/26/25 21:30 Dose: 50 mg Allergies Allergies Allergy/AdvReac Type Severity Reaction Status Date / Time aspirin AdvReac Unknown Verified 06/22/25 15:34 Assessment & Plan Assessment & Plan (1) Current severe episode of major depressive disorder: Status: Acute Code(s): F32.2 - Major depressive disorder, single episode, severe without psychotic features (2) Alcohol intoxication: Qualifiers: Complication of substance-induced condition: uncomplicated Qualified Code(s): F10.920 - Alcohol use, unspecified with intoxication, uncomplicated Status: Acute Code(s): F10.929 - Alcohol use, unspecified with intoxication, unspecified (3) Cocaine use disorder: Status: Acute Code(s): F14.90 - Cocaine use, unspecified, uncomplicated Plan patient is a 34 y.o Dutch speaking female with hx of Polysubstance use d/o and depression who presents to the ER intoxicated, under the influence of alcohol reporting suicidal ideation. Formulation/clinical reasoning: increased life stressors, recently 10 months ago, homeless, increased in alcohol consumption to numb her feeling, not compliant with meds. increased anixety, depression and issues with sleep. Given above information, patient will benefit in restrictive environment for safety, medication management, monitor for same detox when addressing mental health issues, refer patient to outpatient psychiatric services for aftercare. She is could be a good candidate for substance use treatment program. Plan: Patient on 15 minute checks for safety. Admitted to M3. CV. Work with treatment team to do collateral for CSS/CCS if possible for aftercare. Refer to patient to drug safety specialist: pending History of Vivitrol long-acting injection: Last received Feb-Mar: From that is really helpful. She just missed appointment/not able to make appointment. Reported that next appointment is on 06/29/25 at around 1000. 06/23: Melatonin 6 mg at bedtime for insomnia, with trazodone p.r.n. available. Prazosin 2 mg at bedtime for nightmare(home medication) Sertraline 100 mg at bedtime for depression anxiety(home medication) Abilify from events daily in the morning for severe anxiety (home medication) Clonidine 0.1 t.i.d. p.r.n. for withdrawal symptoms Motrin 600 q.6 hour p.r.n. for headache alcohol withdrawal. Vitamin-B a 1000 mcg daily Multivitamins daily. Zofran 4 mg q.6 hours p.r.n. for nauseous and vomiting. We will hold naltrexone to she done with detoxing. We will revisit On [facility] protocol with Ativan PRNs for alcohol withdrawal. 06/24: Meet with patient in assigned room, report sleep is better. Fair appetite. Anxious and sad regarding holiday but mom came in for a visit which made her happy. Report alcohol W/D symptoms are better. Denies safety concerns or hallucination. Per nursing, patient slept for 8 hours, compliant with meds, no side effects. Patient has Vivitrol shot appointment on 06/29/25. If not discharged, she would like someone to call clinic to let them know she is here as she already missed two times and do not want them to think she would miss it this time again. 06/25: Pt denies SI. Denies sx of ETOH w/d. CIWA d/c'd this am. She is future oriented and motivated to work on her sobriety. She has an appt to receive Vivitrol on Saturday am at [facility]. She has good insight/judgment. 06/26: Patient denies any alcohol withdrawal symptoms. Reports continued to improve in sleep and appetite. Denies anxiety and depression, attended groups, easily engaged, had good visit with family reports mom and dad very supportive. Patient had questions regarding if possible to be discharged on Saturday or earliest Saturday so that she can make to the appointment for Vivitrol. Patient is aware that he need to talk to the primary team on Saturday. Per nursing, patient slept well, social and appropriate,, compliant with medications, denies side effects, continue with current treatment plan. 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 Appear that only need the melatonin sent home with patient. Reports some limb note swollen on the left side of the ear which is comes and go and that she experienced similar symptoms before, the swollen was gone eventually in the past and has sore throat. Denies other flu like symptoms. 06/28: Active on unit. social with peers. attending groups. Patient reports feeling good today; pt stated, I'm no longer feeling anxious or depressed. I feel like the medications are helping . denies SI/HI/VH/AH. Patient is requesting to be discharged tomorrow to be able to attend her [facility] appointment for her Vivitrol injection and her outpatient providers. Plan to discharge tomorrow morning so pt can attend her appointments. Patient educated on: diagnosis and medication risk/benefits Reason for continued inpatient stay Substantial Risk for: stable for discharge Time Spent With Patient Time: Total time managing care of this patient today _20___ minutes.
[2025-06-28 20:10] VITALS: BP 122/80; PULSE 81; RESP 18; TEMP 36.2; O2SAT 98
[2025-06-29 07:35] VITALS: BP 133/88; PULSE 105; RESP 16; TEMP 36.1; O2SAT 97
[2025-06-29] MEDS: Naloxone HCl Nasal TAKE HOME 4 MG SPRAY 8 MG NOSTRILALT (08:11)
--- NOTE | 2025-06-29 09:51 | P.DS_ITS ---
DS: Providers Provider Date of Service: 06/29/25 Date of admission: 06/23/25 08:45 Date of discharge: 06/29/25 Primary care physician: Unknown Physician Admitting clinician: Lea Mock Attending physician on admission: John Bosch Consults: 06/23/25 11:48 Addiction Medicine Provider Routine Consulting Provider: Addiction Covering Reason for consultation: pt interested in vivitrol after discharge 06/23/25 21:45 Addiction Medicine Provider Routine Consulting Provider: Addiction Covering Reason for consultation: Severe alcohol use. Intersted in treatment option. On Hx of Vivitrol Has provider been notified: No Attending physician on discharge: John Bosch Discharging clinician: Ebonie Dumont DS: Diagnosis Discharge Diagnosis (1) Current severe episode of major depressive disorder: Status: Acute (2) Alcohol intoxication: Status: Acute (3) Cocaine use disorder: Status: Acute DS: Medications Discharge Medications Home Medications: Home Medications ?Medication ?Instructions ?Recorded ?Confirmed cyanocobalamin (vitamin B-12) 1,000 mcg PO QAM 5 06/22/25 1,000 mcg tablet (Vitamin B-12) hydroxyzine HCl 50 mg tablet 50 mg PO QID PRN anxiety 06/22/25 06/22/25 thiamine HCl (vitamin B1) 100 mg 100 mg PO DAILY 06/2206/22/25 tablet trazodone 50 mg tablet 50 - 100 mg PO BEDTIME PRN i nsomnia 06/22/25 06/22/25 naltrexone microspheres 380 mg 380 mg IM Q4W 06/23/25 06/23/25 intramuscular suspension,extended release (Vivitrol) prazosin 2 mg capsule 2 mg PO BEDTIME 06/23/25 sertraline 100 mg tablet 100 mg PO BEDTIME 06/23/25 1 08/23/24 Previous Rx's ?Medication ?Instructions ?Recorded aripiprazole 5 mg tablet 5 mg PO DAILY 30 days #30 ta bs 06/28/25 melatonin 5 mg capsule 5 mg PO BEDTIME 30 days #30 caps 06/28/25 multivitamin with folic acid 400 1 tab PO DAILY 30 day s #30 tabs 06/28/25 mcg tablet Mental Status Exam Mental Status Exam Narrative: Pt is alert and oriented; behavior is cooperative and calm; dressed in casual attire mood is described as good ; eye contact appropriate; Speech is normal rate, volume and not pressured; thought process is organized; Thought content is on tx/discharge; denies SI/HI/VH/AH. Data Data Completed and Pending Completed studies during hospitalization [Text1]: 06/22/25 06/22/25 06/24/25 16:00 16:02 07:56 WBC 10.0 RBC 4.00 L Hgb 12.5 Hct 38.0 MCV 95.0 MCH 31.3 MCHC 32.9 RDW 13.4 Plt Count 460 H MPV 8.9 L Immature Gran % (Auto) 0.3 Neut % (Auto) 58.7 Lymph % (Auto) 32.0 Howell % (Auto) 6.3 Eos % (Auto) 1.5 Baso % (Auto) 1.2 Lymph # (Auto) 3.2 Howell # (Auto) 0.6 Eos # (Auto) 0.2 Baso # (Auto) 0.1 Abs Immat Gran (auto) 0.03 Absolute Neuts (auto) 5.8 Absolute Nucleated RBC 0.000 Nucleated RBC % (auto) 0.0 Sodium 145 137 Potassium 3.7 3.8 Chloride 108 103 Carbon Dioxide 29 25 Anion Gap 12 13 BUN 7 L 9 Creatinine 0.55 0.58 Estim Creat Clear Calc 131.6 133.0 Estimated GFR > 60 > 60 Random Glucose 98 109 Estimat Average Glucose 85 Hemoglobin A1c % 4.6 Calcium 9.2 9.5 Total Bilirubin 0.1 0.4 AST 21 19 ALT 16 17 Alkaline Phosphatase 86 88 Total Protein 7.8 7.8 Albumin 4.5 4.5 Triglycerides 127 Cholesterol 197 LDL Cholesterol, Calc 101 H HDL Cholesterol 71 Vitamin B12 525 TSH 0.69 Free T4 0.85 Urine Color Yellow Urine Appearance Clear Urine pH 7.5 Ur Specific [place] 1.010 Urine Protein Negative Urine Glucose (UA) Negative Urine Ketones Negative Urine Blood Negative Urine Nitrite Negative Ur Leukocyte Esterase Small (1+) H Urine RBC 0-2 Urine WBC 6-10 H Ur Squamous Epith Cells 0-2 Urine Bacteria Trace Hyaline Casts 0-2 Urine Test NEGATIVE Urine Opiates Screen Not Detected Ur Buprenorphine Scrn Not Detected Ur Oxycodone Screen Not Detected Urine Methadone Screen Not Detected Urine Fentanyl Screen Not Detected Ur Barbiturates Screen Not Detected Ur Phencyclidine Scrn Not Detected Ur Amphetamines Screen Not Detected U Benzodiazepines Scrn Not Detected Urine Cocaine Screen POSITIVE H U Marijuana (THC) Screen POSITIVE H Ethyl Alcohol 392 H* DS: Summary Hospital Course Hospital Course: Per [facility] and [facility] [place]: patient is a 34 y.o [place] speaking female with hx of Polysubstance use d/o and depression who who presents to the ER intoxicated, under the influence of alcohol reporting suicidal ideation. She is tearful. She reports her parents brought her here today after she went today stay with similar complaints and they would not help her. She states has not been taking them as prescribed. She states she is homeless, currently staying with her parents. She reports a significant amount of regret and just want my life back. She states she binge drinks several times per week, few nips to up to 10 nips per day. She also uses intranasal cocaine on Fridays. Denies any other substance use. Denies hallucinations but reports night terrors that seem very vivid and real. She reports lack of sleep and poor appetite. She states last week she was on the other side of a fence on a bridge and ready to jump off when ?something clicked in my head to not jump. ? she denies any other suicide attempts or self-harm in the past. She reports a recent admission to [facility] which helped her a couple of months ago. She would like to go back there for mental health help. Legal issues: denies On M3: patient reports recent for the admission is I started drinking. I want to get help and get back on track and get her life back. Report she lost everything follow the divorce 10 months ago and since then she drinks to numb herself and not have to think about anything. Substance useAlcohol use: 4-10 nips daily. Last drink was just prior to be admitted here in the ED. Hx of section 35- asked to be sectioned by family from November. Relapsed 3 months after treatment. Report on Vivitrol monthly injection which was very helpful. Would like to get it again. Potential appoint in June. Longest sobriety was from Sep 04- November. ROSITA: a couple times a week. Last use was a week ago- sniffed it. . Hx of using mushroom. Currently on CIWA protocol with Ativan PRN and was offered Ativan after brought up to the unit from ED. Report poor sleep like shit but good appetite and gain some weight lately. Denies SI/SIB/HI/AVH. Denies SIB hx, denies SI hx. Denies suicide attempt hx. Mood is anxious and depressed rated them a 9/10. also report feeling irritated. No hx of hallucination. Seen by SALES CONTRACT ADMINISTRATOR from [facility] to manage her psychiatric medication after discharged from [facility]. Patient is A+Ox4, wearing hospital attire with symptoms of alcohol W/D. Anxious, sad, depressed but pleasant and cooperative. No irritability. Fair eye contact. Thought process is organizned and linear. Thought content is with treatment and treatment focus, future oriented. No SI/SIB/HI/AVH. Poor judgment but fair insight. patient is a 34 y.o [place] speaking female with hx of Polysubstance use d/o and depression who presents to the ER intoxicated, under the influence of alcohol reporting suicidal ideation. Formulation/clinical reasoning: increased life stressors, recently 10 months ago, homeless, increased in alcohol consumption to numb her feeling, not compliant with meds. increased anixety, depression and issues with sleep. Given above information, patient will benefit in restrictive environment for safety, medication management, monitor for same detox when addressing mental health issues, refer patient to outpatient psychiatric services for aftercare. She is could be a good candidate for substance use treatment program. Plan: Patient on 15 minute checks for safety. Admitted to M3. CV. Work with treatment team to do collateral for CSS/CCS if possible for aftercare. Refer to patient to client success specialist: pending History of Vivitrol long-acting injection: Last received Feb-Mar: From that is really helpful. She just missed appointment/not able to make appointment. Reported that next appointment is on 06/29/25 at around 1000. Melatonin 6 mg at bedtime for insomnia, with trazodone p.r.n. available. Prazosin 2 mg at bedtime for nightmare(home medication) Sertraline 100 mg at bedtime for depression anxiety(home medication) Abilify from events daily in the morning for severe anxiety (home medication) Clonidine 0.1 t.i.d. p.r.n. for withdrawal symptoms Motrin 600 q.6 hour p.r.n. for headache alcohol withdrawal. Vitamin-B a 1000 mcg daily Multivitamins daily. Zofran 4 mg q.6 hours p.r.n. for nauseous and vomiting. We will hold naltrexone to she done with detoxing. We will revisit On [facility] protocol with Ativan PRNs for alcohol withdrawal. Meet with patient in assigned room, report sleep is better. Fair appetite. Anxious and sad regarding holiday but mom came in for a visit which made her happy. Report alcohol W/D symptoms are better. Denies safety concerns or hallucination. Per nursing, patient slept for 8 hours, compliant with meds, no side effects. Patient has Vivitrol shot appointment on 06/29/25. If not discharged, she would like someone to call clinic to let them know she is here as she already missed two times and do not want them to think she would miss it this time again. Pt denies SI. Denies sx of ETOH w/d. CIWA d/c'd this am. She is future oriented and motivated to work on her sobriety. She has an appt to receive Vivitrol on Saturday am at [facility]. She has good insight/judgment. Patient denies any alcohol withdrawal symptoms. Reports continued to improve in sleep and appetite. Denies anxiety and depression, attended groups, easily engaged, had good visit with family reports mom and dad very supportive. Patient had questions regarding if possible to be discharged on Saturday or earliest Saturday so that she can make to the appointment for Vivitrol. Patient is aware that he need to talk to the primary team on Saturday. Per nursing, patient slept well, social and appropriate,, compliant with medications, denies side effects, continue with current treatment plan. 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 Appear that only need the melatonin sent home with patient. Reports some limb note swollen on the left side of the ear which is comes and go and that she experienced similar symptoms before, the swollen was gone eventually in the past and has sore throat. Denies other flu like symptoms. Active on unit. social with peers. attending groups. Patient reports feeling good today; pt stated, I'm no longer feeling anxious or depressed. I feel like the medications are helping . denies SI/HI/VH/AH. Patient is requesting to be discharged tomorrow to be able to attend her [facility] appointment for her Vivitrol injection and her outpatient providers. Plan to discharge tomorrow morning so pt can attend her appointments. Status at Discharge Cognitive/behavioral status at discharge: Patient has insight and demonstrates good judgment in terms of wanting to pursue treatment. Patient has a safety plan that includes presenting to the closest ER or calling 911 if feeling unsafe. Functional status at discharge: independent ambulation Overall status at discharge: patient is back to baseline Time Spent with Patient Time attestation: Total time managing care of this patient today _20___ minutes. Time spent: Less than 30 minutes Discharge Plan Discharge Anticipated Discharge Date/Time: 06/29/25 09:00 Patient Disposition: Home, Self-Care Discharge Diagnosis: MDD, cocaine use d/o, Alcohol use d/o Referrals: Therapy & Psychiatry [Other] - 1 Week Referral Note: *You can present to the clinic above, Saturday through Saturday during the hours of 8am and 8pm, in order to obtain outpatient mental health providers. *Please bring your photo ID, insurance card and hospital discharge paperwork with you to the walk in clinic. [facility] [Provider Group] - 1 Week Referral Note: Walk in hours saturday through Saturday 830-4 Discharge Medications: New melatonin 5 mg capsule 5 mg PO BEDTIME 30 Days Qty: 30 0RF Continued trazodone 50 mg tablet 50 - 100 mg PO BEDTIME PRN (Reason: insomnia) cyanocobalamin (vitamin B-12) [Vitamin B-12] 1,000 mcg tablet 1,000 mcg PO QAM thiamine HCl (vitamin B1) 100 mg tablet 100 mg PO DAILY hydroxyzine HCl 50 mg tablet 50 mg PO QID PRN (Reason: anxiety) sertraline 100 mg tablet 100 mg PO BEDTIME prazosin 2 mg capsule 2 mg PO BEDTIME Vivitrol 380 mg Suspension,Extended Rel Recon 380 mg IM Q4W aripiprazole 5 mg tablet 5 mg PO DAILY 30 Days Qty: 30 0RF multivitamin with folic acid 400 mcg Tablet 1 tab PO DAILY 30 Days Qty: 30 0RF Discontinued naltrexone 50 mg tablet 50 mg PO DAILY Discharge Orders: Discharge Order (Routine); Ordered 06/29/25 Ordered By: Delaney Rhodes Diet: Regular diet Activity on Discharge: As tolerated Stand Alone Forms: Patient Portal Discharge page, Community Support Print Language: Choose Not To Answer Care Plan Goals: Maintain mood and safe behaviors Take medications as prescribed Continue to pursue sobriety Practice coping skills Continue with outpatient providers and reach out to them as needed Health Concerns: Mood stability and behaviors Sobriety Plan of Treatment: Follow up with your PCP, psychiatric provider and other outpatient providers regarding above concerns Take medications as prescribed Assessment: Patient has insight and demonstrates good judgment in terms of wanting to pursue treatment. Patient has a safety plan that includes presenting to the closest ER or calling 911 if feeling unsafe. Discharge Date/Time: 06/29/25 09:10
== END 2025-06-29 09:10 | disposition home or self-care (01) | DRG 751 ==
LOC: HO.ED 16:21 → HO.PADLT16 06-23 09:05
PROVIDERS: Registered Nurse Emergency; Admitting Provider Nurse Practitioner Psychiatric/Mental Health; Emergency Provider Emergency Medicine; Responsible Provider Registered Nurse; Visit Provider Psychiatry & Neurology Psychiatry
DX: F32.2 Major depressive disorder, single episode, severe without psychotic features (principal); R45.851 Suicidal ideations; F17.210 Nicotine dependence, cigarettes, uncomplicated; Z71.6 Tobacco abuse counseling; Y90.8 Blood alcohol level of 240 mg/100 ml or more; F10.129 Alcohol abuse with intoxication, unspecified; F14.90 Cocaine use, unspecified, uncomplicated; Z63.5 Disruption of family by separation and divorce; Z59.02 Unsheltered homelessness; Z79.899 Other long term (current) drug therapy
CPT/HCPCS: 36415; 80053; 80061; 80307; 81001; 81025; 82607; 83036; 84439; 84443; 85025; 93005; 99285

== ENCOUNTER → 2025-06-23 08:02 | Outpatient (BNV) | payer MEDICAID, SELFPAY | PROVIDERS: Admitting Provider Nurse Practitioner Psychiatric/Mental Health; Emergency Provider Emergency Medicine; Visit Provider Internal Medicine Cardiovascular Disease | DX: Z03.89 Encounter for observation for other suspected diseases and conditions ruled out (principal) | CPT/HCPCS: 93010 ==

== ENCOUNTER → 2025-06-23 08:45 | Outpatient (BNV) | payer OTHER, SELFPAY | PROVIDERS: Admitting Provider Nurse Practitioner Psychiatric/Mental Health; Emergency Provider Emergency Medicine; Visit Provider Nurse Practitioner Psychiatric/Mental Health | DX: F32.2 Major depressive disorder, single episode, severe without psychotic features (principal); F10.920 Alcohol use, unspecified with intoxication, uncomplicated; F14.90 Cocaine use, unspecified, uncomplicated | CPT/HCPCS: 99231; 99232 ==